=== PATIENT | female | born 1995 | race Native Hawaiian/Other Pacific Islander ===

== ENCOUNTER 2020-05-11 07:18 | Emergency (ER) | payer OTHER ==
[~2020-05-11] VITALS: Ht 162.6 cm; Wt 86.2 kg
[2020-05-11 07:58] LABS: PLATELET COUNT 259 K/uL (152-353)
[2020-05-11 08:04] LABS: POTASSIUM 2.6 mmol/L (3.6-5.2)
[2020-05-12 13:45] VITALS: BP 117/68; TEMP 98.6
== END 2020-05-12 13:45 | disposition other institution (70) ==
LOC: ED 07:29
PROVIDERS: Emergency Medicine
DX: F20.89 Other schizophrenia (principal); R44.2 Other hallucinations; F15.10 Other stimulant abuse, uncomplicated
CPT/HCPCS: 80053; 80307; 80320; 80329; 81000; 81025; 84132; 85027; 93005; 96372; 99285; J1200; J1630; J1885; J2060; J2930